=== PATIENT | male | born 1995 | race Caucasian/White ===

== ENCOUNTER → 2022-08-13 | Outpatient (CLI) | payer OTHER | LOC: M LAB 09:59 | PROVIDERS: ATTEND Allergy & Immunology Allergy | DX: T63.441A Toxic effect of venom of bees, accidental (unintentional), initial encounter (principal) ==

== ENCOUNTER → 2022-11-06 | Outpatient (CLI) | payer OTHER | LOC: M PLALAB 11:56 | PROVIDERS: ATTEND Internal Medicine Infectious Disease | DX: A53.0 Latent syphilis, unspecified as early or late (principal) ==